=== PATIENT | female | born 1970 | race Caucasian/White ===

== ENCOUNTER 2017-05-15 10:18 | Day surgery (SDC) | payer BC ==
[~2017-05-15 10:18] MED LIST: RINGER'S SOLUTION,LACTATED 1,000 ML IV PRN; ceFAZolin SODIUM 1 GM VIAL IV PRN
[2017-05-15] MEDS ORDERED: RINGER'S SOLUTION,LACTATED 1,000 ML IV ONE (11:00)
[2017-05-15] MEDS ORDERED: SCOPOLAMINE HYDROBROMIDE 1.5 MG PATC TD ONE (11:30)
[2017-05-15] MEDS ORDERED: BUPIVACAINE HCL 50 ML VIAL IJ ONE (12:05)
[2017-05-15 15:21] VITALS: BP 125/72
== END 2017-05-15 10:19 | disposition home or self-care (01) ==
LOC: AMB 10:18
PROVIDERS: ATTEND Orthopaedic Surgery
PROC: 0PSV35Z Reposition Left Finger Phalanx with External Fixation Device, Percutaneous Approach (ICD-10-PCS; principal; 2017-05-15 12:45)
DX: S62.633D Displaced fracture of distal phalanx of left middle finger, subsequent encounter for fracture with routine healing (principal); W21.07XD Struck by softball, subsequent encounter; Z68.22 Body mass index [BMI] 22.0-22.9, adult